=== PATIENT | female | born 1990 | race Caucasian/White ===

== ENCOUNTER 2020-05-17 17:18 | Outpatient (CLI) | payer OTHER, SELFPAY ==
[2020-05-17 18:01] VITALS: BP 115/63; PULSE 70
[2020-05-17 18:15] VITALS: BP 115/63; PULSE 70
== END 2020-05-17 18:20 | disposition home or self-care (01) ==
LOC: ANHOBOP 17:36 → ANHOBPP 17:39
PROVIDERS: Visit Provider Obstetrics & Gynecology
DX: O41.8X90 Other specified disorders of amniotic fluid and membranes, unspecified trimester, not applicable or unspecified (principal)
CPT/HCPCS: 59025; 84112; 99199

== ENCOUNTER 2020-06-27 16:58 | Inpatient (IN) | payer OTHER, SELFPAY ==
[2020-06-27] VITALS (18 sets, daily range): BP systolic 110–137; BP diastolic 58–84; PULSE 63–74; RESP 16; TEMP 36.3–36.8; O2SAT 98; BMI 24.5
[2020-06-27 17:49] LABS: Basophils Percent Auto 0.4 % (0.2-1.2); Eosinophils Absolute Auto 0.1 K/mm3 (0-0.3); Eosinophils Percent Auto 0.6 % (0-4.4); Hematocrit 36.7 % (37.0-47.0); Immature Granulocyte Absolute 0.11 K/mm3 (0.00-0.031); Immature Granulocyte Percent A 1.3 % (0-0.5); Lymphocytes Absolute Auto 0.99 K/mm3 (0.9-3.2); Lymphocytes Percent Auto 11.7 % (18.3-44.2); Mean Corpuscular HGB Conc 32.7 g/dl (32-36); Mean Corpuscular Hemoglobin 30.5 pg (26-34); Mean Corpuscular Volume 93.1 fl (80-100); Mean Platelet Volume 10.8 fl (7.4-10.4); Monocytes Absolute Auto 0.8 K/mm3 (0.1-0.6); Monocytes Percent Auto 8.9 % (2.6-8.5); Neutrophils Absolute Auto 6.5 K/mm3 (1.3-6.7); Neutrophils Percent Auto 77.1 % (45.5-73.1); Platelet Count Result 158 k/mm3 (150-375); Red Blood Count 3.94 M/mm3 (4.2-5.4); Red Cell Distribution Width 13.7 % (11.5-14.5); White Blood Count 8.5 K/mm3 (4.5-10.0)
[2020-06-27] MEDS: DINOPROSTONE 10 MG VAG INSERT VAGINAL (17:49)
[2020-06-28] VITALS (70 sets, daily range): BP systolic 103–134; BP diastolic 54–80; PULSE 62–81; RESP 16; TEMP 36.2–36.8; O2SAT 94–100
--- NOTE | 2020-06-28 05:30 | WPDANESEPP ---
Anes - Eval Pre Procedure Procedure: Labor epidural Date/Time: 06/28/20 05:30 Surgeon: Wale Preop Diagnosis: Abd pain with contractions Pre Op Diagnosis: Induction of Labor Patient Data Age: 30 Gender: F Height: 6 ft Weight: 82 kg Last Vital Signs Temp 97.1 F L 06/28/20 01:39 Pulse 70 06/28/20 01:45 BP 103/54 L 06/28/20 01:45 Allergies Allergy/AdvReac Type Severity Reaction Status Date / Time No Known Allergies Allergy Verified 06/05/20 13:37 Home Medications Medication Instructions Recorded Confirmed Type [id number] fum-folic [id number] 1 pkg PO DAILY 05/17/20 06/27/20 History [Daily ] Laboratory Tests 06/27/20 06/27/20 06/27/20 17:35 17:35 17:35 WBC 8.5 K/mm3 K/mm3 (4.5-10.0) RBC 3.94 M/mm3 L M/mm3 (4.2-5.4) Hgb 12.0 g/dL g/dL (12.0-15.0) Hct 36.7 % L % (37.0-47.0) MCV 93.1 fl fl (80-100) MCH 30.5 pg pg (26-34) MCHC 32.7 g/dl g/dl (32-36) RDW 13.7 % % (11.5-14.5) Plt Count 158 k/mm3 k/mm3 (150-375) MPV 10.8 fl H fl (7.4-10.4) Immature Gran % (Auto) 1.3 % H % (0-0.5) Neut % (Auto) 77.1 % H % (45.5-73.1) Lymph % (Auto) 11.7 % L % (18.3-44.2) [place] % (Auto) 8.9 % H % (2.6-8.5) Eos % (Auto) 0.6 % % (0-4.4) Baso % (Auto) 0.4 % % (0.2-1.2) Lymph # (Auto) 0.99 K/mm3 K/mm3 (0.9-3.2) [place] # (Auto) 0.8 K/mm3 H K/mm3 (0.1-0.6) Eos # (Auto) 0.1 K/mm3 K/mm3 (0-0.3) Baso # (Auto) 0.0 K/mm3 K/mm3 (0.0-0.1) Abs Immat Gran (auto) 0.11 K/mm3 H K/mm3 (0.00-0.031) Absolute Neuts (auto) 6.5 K/mm3 K/mm3 (1.3-6.7) Absolute Nucleated RBC 0.0 K/mm3 K/mm3 (0.0-0.012) Nucleated RBC % 0.0 % % (0.0-0.2) RPR Pending Blood Type A Positive Antibody Screen Negative Patient hx anesthesia problems: none Family hx anesthesia problems: none [facility] Past Medical History Medical History (Updated 06/28/20 @ 05:33 by Rajesh Sutton CRNA) and not yet delivered Family History Family History Father Hypertension History of blood clots Grandparent Lung cancer Social History Social History Smoking status: Never smoker Substance use: never Spiritual care concerns: No Exam Day of Procedure 06/28/20 05:30 Patient weight: normal Neurological: alert and oriented
[2020-06-28] MEDS: OXYTOCIN 30 UNITS/NS 500 ML 30 UNITS/500 ML BAG IV CONT (05:43)
[2020-06-28] MEDS: fentaNYL CITRATE INJ (*CRX) 100 MCG/2 ML VIAL 50 MCG IV PUSH (05:47)
[2020-06-28] MEDS: LACTATED RINGERS 1,000 ML 125 ML IV CONT (07:14)
[2020-06-28 10:13] LABS: Rapid Plasma Reagin Non-Reactive (NonReactive)
--- NOTE | 2020-06-28 10:15 | WPDHPUPDATE1 ---
History and Physical Update Update Date/Time: 06/28/20 10:15 History and Physical has been reviewed, including an updated exam of the patient. There are NO changes in the patient's condition. Risks, benefits, and alternatives have been discussed and questions answered. Patient agrees to proceed with procedure.
--- NOTE | 2020-06-28 10:15 | WPDOBADMIT ---
Obstetrics - Admit Note Admission Note: record reviewed. No pertinent additions to the history and/or any subsequent changes in the physical findings that are not consistent with the expected course of the were found. Additions to the history and/or subsequent changes in the physical findings follow. None.
--- NOTE | 2020-06-28 10:16 | PM.OBPRVD ---
OB - Delivery Note Procedure Route of delivery: Laceration description: Perineal - 2nd Degree Delivery repair: chromic Specimen: No Estimated blood loss (mL): 300 Anesthesia type: Epidural Disposition: floor Narrative: Patient prepped and draped in usual manner for this procedure. Maternal expulsive efforts readily delivered vertex with nuchal cord noted x2 and readily reduced. Rest of baby was delivered without difficulty cord was clamped and cut and placenta delivered spontaneously. Second-degree laceration was noted and closed using 2 0 chromic to approximate the vaginal tissue deep tissue in a subcuticular layer to approximate the skin edges this point the procedure was considered terminated. Patient tolerated the procedure well and immediate postoperative condition mother and baby both excellent. Baby Weeks of gestation at delivery: 39 gender: Male Weight (pounds): 8 Weight (ounces): 2 score one minute: 8 score five minutes: 9
[2020-06-28] MEDS: WITCH HAZEL 40 PADS 1 PAD TOPICAL (12:30)
[2020-06-28] MEDS: BENZOCAINE 20% AER SPR (*SP) 56 GM CAN 1 SPRAY TOPICAL (12:31)
[2020-06-28] MEDS: IBUPROFEN 600 MG TABLET PO ×2 (12:32→19:44)
[2020-06-29] MEDS: IBUPROFEN 600 MG TABLET PO (05:12)
[2020-06-29 05:45] LABS: Hematocrit 27.4 % (37.0-47.0)
--- NOTE | 2020-06-29 07:23 | PM.OBDSVD ---
DS: Admitting Diagnosis Admitting Diagnosis Admitting Diagnosis: Induction of Labor OB - DS: Summary OB Procedures : None OB Procedures Intrapartum: Spontaneous Vag Delivery OB Procedures: : None Time Spent with Patient Time attestation: Total time spent providing and/or coordinating discharge services: DS: Data Data Completed and Pending Labs on day of discharge: Labs from last 24 hours 06/29/20 06/27/20 05:00 17:35 Hgb 9.0 L D Hct 27.4 L RPR Non-reactive Discharge Plan Discharge Discharging Clinician: Arslan Echevarria Patient Disposition: Home, Self-Care Activity: as tolerated Diet: as tolerated Patient Instructions: Antibiotic Form Stand Alone Forms: General Discharge Information Follow-up/Referrals: Arslan Echevarria MD [Physician] - 3 Weeks Discharge Medications: New ibuprofen 600 mg Tablet 600 mg PO Q6H PRN (Reason: Cramping) Qty: 30 RF: 0 Continued Daily [phone] mg-mcg-mg Combo Pack 1 pkg PO DAILY RF: 0 Date of admission: 06/27/20 16:58 Primary Care Provider: PHYSICIAN NOT ON STAFF,NONSTAFF Admitting Provider: Arslan Echevarria Attending physician on admission: Arslan Echevarria Condition: Stable
[2020-06-29 07:35] VITALS: BP 109/69; PULSE 68; RESP 18; TEMP 36.9; O2SAT 99
[2020-06-29 08:59] VITALS: PULSE 66; RESP 16; O2SAT 97
--- NOTE | 2020-06-29 09:12 | WPDANLDPN2 ---
Anes-Prog Note L&D Date/Time: 06/29/20 09:12 Comfortable throughout: labor and delivery Neuraxial method: epidural Epidural/Spinal procedure site: clean & non-tender Neuro status: Neuro function grossly intact. Cardiovascular status: normal Respiratory status: normal Airway patency: baseline Mental status: baseline Post-Op hydration status: normal Vital Signs: Last Vital Signs Temp 36.6 C 06/28/20 13:10 Pulse 66 06/29/20 08:59 Resp 16 06/29/20 08:59 BP 105/68 06/28/20 13:10 Pulse Ox 97 06/29/20 08:59 Pain score (VAS): 0 Post-procedural complaints: none Patient feedback: Patient satisfied with anesthetic care.
--- NOTE | 2020-06-29 10:50 | PC.NURSE ---
Consulted with patient, mother reports slight tenderness with feedings. Mother breastfed first child for several months with some milk supply issues and began pumping and bottle feeding. Observed infant has a slightly tight frenulum, infant is able to thrust tongue past gum ridge. Discussed how a tight tongue may impact latch and empting the breast and milk supply. Reviewed feeding cues, frequencies, duration of feedings, feeding elimination flow sheet, and signs of adequate intake. Demonstrated stimulation techniques to wake for feeding. Assisted with infant to breast. Reviewed positioning/alignment in cross cradle, holding breast in U hold and guided asymmetrical latch on. Discussed rational for each. was able to latch correctly. Mother reports has not been latching this deeply, and was using the cradle position for latch. Discussed the cross cradle assist with deep latch and assisting infant with maintaining deep latch. nursed eagerly, with steady draws and frequent swallowing noted. Reviewed signs of a correct latch, effective nursing and suck swallow ratio. was able to maintain latch without discomfort to mother. Nipple care reviewed. Advised mother to discuss infant's frenulum with her ICP at first visit. Mother is feeding as required and waking infant to feed if needed. Infant has had at least 8 effective feedings in the past 24 hours, and is currently meeting outcomes for weight, output, jaundice and feeding frequencies. Mother states she feels confident to continue effective at home. Reviewed transition to breast milk, signs of adequate intake, and engorgement/relief. Instructed to call ICP if intake/output less than required. Reviewed regular medications mother is taking. Information provided per Cheryl. Reviewed community resources on the [facility] website and in the Mom/Baby guide. Information on outpatient services provided. Mother has no further questions at this time.
== END 2020-06-29 14:37 | disposition home or self-care (01) | DRG 807 ==
LOC: ANHLDR 06-28 11:06 → ANHOB2 06-28 13:14
PROVIDERS: Admitting Provider Obstetrics & Gynecology; Visit Provider Obstetrics & Gynecology
DX: O69.81X0 Labor and delivery complicated by cord around neck, without compression, not applicable or unspecified (principal); Z37.0 Single live birth; Z3A.39 39 weeks gestation of pregnancy; O36.8330 Maternal care for abnormalities of the fetal heart rate or rhythm, third trimester, not applicable or unspecified; O70.1 Second degree perineal laceration during delivery; Z23 Encounter for immunization
CPT/HCPCS: 36415; 85014; 85018; 85025; 86592; 86850; 86900; 86901; 90471; 90653; A9270; G0008; J2590; J2795; J3010; J7120

== ENCOUNTER 2022-06-20 08:59 | Emergency (ER) | payer OTHER, SELFPAY ==
[2022-06-20 09:06] VITALS: BP 122/71; PULSE 73; RESP 14; TEMP 37.1; O2SAT 100
--- NOTE | 2022-06-20 09:06 | ED.PEDFEVER ---
HPI - Pediatric Fever General Stated Complaint: Sore Throat Mode of arrival: ambulatory Limitations: no limitations PMFSH Comments At time of signature, agree with nursing past medical, surgical, social and family history. There is no relevant family history pertinent to the presenting complaint Pediatric Exam General: Limitations: no limitations Course Course Emergency Course: Patient is aware of diagnosis, understands and agrees to treatment plan. Anticipatory guidance given. Patient agrees to follow-up as directed and is aware of reasons to seek care at the emergency department. Portions of this record may have been created with voice recognition software Level of Care: Express Care Visit Vital Signs Vital signs: Reviewed. Critical Care Time Critical Care Time Critical Care Time: No Discharge Plan Discharge Follow-up/Referrals: PHYSICIAN,PEST CONTROL WORKER [Primary Care Provider] -
--- NOTE | 2022-06-20 09:44 | ED.URI ---
HPI - URI/Sore Throat General Chief Complaint: Upper Respiratory Infection Stated Complaint: Sore Throat Time Seen by Provider: 06/20/22 09:35 Source: patient and RN notes reviewed Mode of arrival: ambulatory Limitations: no limitations History of Present Illness HPI Narrative: 32-year-old female presents concern for sore throat with painful swallowing that started earlier this week. She reports chills, fevers, body aches. She denies nasal congestion or drainage, cough. She also reports right eye that is red, irritated and was stuck shut in the morning. She denies any eye injury. MD elicited complaint: sore throat Related Data Home Medications Medication Instructions Recorded Confirmed propranolol 10 mg tablet 10 mg PO DAILY PRN Anxiety 06/20/22 06/20/22 Allergies Allergy/AdvReac Type Severity Reaction Status Date / Time No Known Allergies Allergy Verified 06/20/22 09:20 Review of Systems Review of Systems: CONSTITUTIONAL: Reports malaise, chills, sweats,, fever. EYES: Reports right eye blurry vision, redness, or discharge. ENT: Denies rhinorrhea, congestion, sinus pain, otalgia. Reports sore throat. CARDIOVASCULAR: Denies chest pain, palpitations, or edema. RESPIRATORY: Denies cough. Denies dyspnea. GASTROINTESTINAL: Denies abdominal pain, nausea, vomiting, diarrhea SKIN: Denies rash or itching. MUSCULOSKELETAL: Denies myalgia. NEUROLOGIC: Denies headache. All systems reviewed & are unremarkable except as noted in HPI and below PMFSH Comments At time of signature, agree with nursing past medical, surgical, social and family history. There is no relevant family history pertinent to the presenting complaint Exam Narrative: GENERAL: Nontoxic appearing and in no acute distress. HEAD: Normocephalic EYES: PERRLA, right conjunctivae and sclera injected ENT: Nares clear. Mucous membranes moist. TM pearly cullen with sharp light reflex bilaterally; no tragal tenderness. Oropharynx erythematous without lesions. Tonsils enlarged and with with yellow exudate, no drooling, no hoarseness, no trismus, uvula midline. NECK: Supple. No lymphadenopathy CHEST: Clear to auscultation, breath sounds equal. No wheezing, rhonchi, rales, or stridor. No respiratory distress, speaks in full sentences. HEART: Regular rate and rhythm. No murmur heard. SKIN: Warm, dry, no rash. NEURO: Alert and oriented x3. PSYCH: Normal mood and affect Course Course Emergency Course: Patient is aware of diagnosis, understands and agrees to treatment plan. Anticipatory guidance given. Patient agrees to follow-up as directed and is aware of reasons to seek care at the emergency department. Portions of this record may have been created with voice recognition software Level of Care: Express Care Visit Vital Signs Vital signs: Vital Signs Temperature 98.7 F 06/20/22 09:06 Pulse Rate 73 06/20/22 09:06 Respiratory Rate 14 06/20/22 09:06 Blood Pressure 122/71 06/20/22 09:06 Pulse Oximetry 100 06/20/22 09:06 Oxygen Delivery Room Air 06/20/22 09:06 Temperature 98.7 F 06/20/22 09:06 Pulse Rate 73 06/20/22 09:06 Respiratory Rate 14 06/20/22 09:06 Blood Pressure 122/71 06/20/22 09:06 Pulse Oximetry 100 06/20/22 09:06 Oxygen Delivery Room Air 06/20/22 09:06 Reviewed. MDM - URI/Sore Throat MDM Narrative Medical decision making narrative: Differential diagnosis considered: Loza virus, strep pharyngitis, allergic rhinitis, upper respiratory tract infection, sinusitis, rhinosinusitis, nasopharyngitis. viral pharyngitis, otitis media, otitis externa, pneumonia, bronchitis, viral cough syndrome, viral syndrome, and influenza. Exam findings show no acute concerns or changes; patient is non-toxic appearing and is in no distress. Patient is appropriate for outpatient treatment and follow-up. Lab Data Attestation: I reviewed the patient's lab results. Labs: Strep Screen Presumptive Negative
== END 2022-06-20 09:50 | disposition home or self-care (01) ==
PROVIDERS: Emergency Provider Nurse Practitioner
DX: J03.90 Acute tonsillitis, unspecified (principal); H10.9 Unspecified conjunctivitis; Z20.822 Contact with and (suspected) exposure to COVID-19
CPT/HCPCS: 87081; 87426; 87804; 87880; 99213; C9803; G0463

== ENCOUNTER 2022-12-12 08:36 | Emergency (ER) | payer OTHER, SELFPAY ==
[2022-12-12 08:53] VITALS: BP 139/87; PULSE 59; RESP 15; TEMP 36.9; O2SAT 100
--- NOTE | 2022-12-12 09:41 | ED.URI ---
HPI - URI/Sore Throat General Chief Complaint: Upper Respiratory Infection Stated Complaint: Sore Throat Time Seen by Provider: 12/12/22 09:30 Source: patient, RN notes reviewed and old records reviewed Mode of arrival: ambulatory Limitations: no limitations History of Present Illness HPI Narrative: 32-year-old female who presents to [facility] with complaints of sore throat since Friday. Patient reports she has no sinus congestion or drainage, denies any cough, denies any headaches, nausea or vomiting. Patient reports her children have had coughs but no one in house old has had sore throat. Patient states she has noted white pockets on her right tonsil has had previous tonsillitis. Patient has not taken any OTC medication, denies any fevers. MD elicited complaint: sore throat Pertinent past history: other (Tonsillitis) Onset (ago): day(s) (3-4) Pain scale (0-10): 4 Able to tolerate fluids by mouth: Yes Exacerbating factors: swallowing Treatments prior to arrival: none Related Data Home Medications Medication Instructions Recorded Confirmed propranolol 10 mg tablet 10 mg PO DAILY PRN Anxiety 06/20/22 06/20/22 levonorgestrel 21 mcg/24 hours (8 1 device intrauterine ONCE 12/03/22 12/03/22 yrs) 52 mg intrauterine device (Mirena) Allergies Allergy/AdvReac Type Severity Reaction Status Date / Time No Known Allergies Allergy Verified 12/12/22 08:53 Review of Systems Review of Systems: CONSTITUTIONAL: Denies malaise, chills, sweats, or fever. EYES: Denies visual changes, redness, or discharge. ENT: Reports no rhinorrhea, congestion, sinus pain, otalgia positive for sore throat. CARDIOVASCULAR: Denies chest pain, palpitations, or edema. RESPIRATORY: Reports no cough.? Denies dyspnea. GASTROINTESTINAL: Denies abdominal pain, nausea, vomiting, diarrhea SKIN: Denies rash or itching. MUSCULOSKELETAL: Denies myalgia. NEUROLOGIC: Denies headache. 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 delivered Surgical History Surgical History History of colposcopy with cervical biopsy (12/15/20) benign Family History Family History Father Hypertension History of blood clots Grandparent Lung cancer maternal grandmother Social History Social History Smoking status: Never smoker Alcohol intake: never Substance use: never Substance use type: does not use Living arrangements: other Additional living arrangements comments: single , lives with boyfriend Occupation/Education: occupation 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 There is no relevant family history pertinent to the presenting complaint Exam Narrative: GENERAL: Well-appearing, well-nourished, and in no acute distress. HEAD: Normocephalic EYES: PERRLA, conjunctivae clear ENT: Nares clear, turbinates edematous and erythematous, clear discharge. Mucous membranes moist. TM pearly cullen with dull light reflex bilaterally; no tragal tenderness. Oropharynx erythematous without lesions. Tonsils red enlarged and with white exudate, no drooling, no hoarseness, no trismus, uvula midline. NECK: Supple. lymphadenopathy CHEST: Clear to auscultation
== END 2022-12-12 10:03 | disposition home or self-care (01) ==
PROVIDERS: Emergency Provider Registered Nurse; PCP Family Medicine
DX: J03.90 Acute tonsillitis, unspecified (principal)
CPT/HCPCS: 87081; 87880; 99213; G0463